=== PATIENT | male | born 1945 | race Caucasian/White ===

== ENCOUNTER 2016-10-01 09:50 | Observation (INO) ==
--- NOTE | 2016-10-01 10:20 | Emergency Department Note ---
Disposition Clinical Impression: Bradycardia, Hypotension, Diabetes Disposition: Admitted As Inpatient Condition: Fair Weakness HPI - General Chief complaint: ED General Medical Stated complaint: bp low Time Seen by Provider: 10/01/16 09:52 Source: patient Mode of arrival: ambulatory Limitations: no limitations Nursing Notes Reviewed: Yes Vital Signs Reviewed: Yes - History of Present Illness HPI Narrative: Patient was at the doctor's office yesterday was noted to have hypertension as a result of modified his medications is unclear the patient has either stop some of his thumb he does have a med reconciliation paper with him but he says he only takes with his doctor has he said he has a bottle at home so he takes his medications as a result appears the patient may be overmedicated causing some hypotension and bradycardia labs are being that this time to make sure there is no other underlying etiology Pt Subjective Complaint: generalized weakness/fatigue Onset (ago): 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 Duration: constant Location: generalized Migration: none Pain Severity: none Improves with: none Worsens with: none Context: new medication Associated symptoms: Denies: chest pain, confusion, dark stools, diaphoresis, dysuria, easy bruising, fever/chills, headaches, loss of appetite, nausea/ vomiting, myalgias, rash, shortness of breath, syncope - Related Data Home Medications Medication Instructions Recorded Confirmed Levothyroxine [Synthroid] 50 mcg PO 0630 06/20/16 10/01/16 Pravastatin Sodium [Pravachol] 40 mg PO HS 06/20/16 10/01/16 Primidone [Mysoline] 50 mg PO HS 06/20/16 10/01/16 Amlodipine Besylate 10 mg PO DAILY 06/21/16 10/01/16 Doxazosin [Cardura] 4 mg PO HS 06/21/16 10/01/16 Finasteride [Proscar] 5 mg PO DAILY 06/21/16 10/01/16 Glimepiride [Amaryl] 4 mg PO DAILY 06/21/16 10/01/16 Hydralazine HCl 100 mg PO TID 06/21/16 10/01/16 Isosorbide MONOnitrate [Isosorbide 120 mg PO DAILY 06/21/16 10/01/16 Mononitrate ER] Labetalol HCl 300 mg PO BID 06/21/16 10/01/16 Oxybutynin [Ditropan] 5 mg PO DAILY 06/21/16 10/01/16 Spironolactone [Aldactone] 25 mg PO DAILY 06/21/16 10/01/16 CloNIDine HCl [Clonidine HCl] 0.3 mg PO TID 09/24/16 10/01/16 Insulin Glargine [Lantus] 10 units SQ HS PRN 10/01/16 10/01/16 Allergies Allergy/AdvReac Type Severity Reaction Status Date / Time No Known Allergies Allergy Unverified 07/23/15 10:51 All systems ED: reviewed and negative except as stated. Constitutional: Reports: weakness. Denies: fever, chills Eyes: Denies: vision change ENT ED: Denies: ear pain, throat pain Cardiovascular: Denies: chest pain, palpitations Respiratory: Reports: dyspnea Gastrointestinal: Denies: abdominal pain Genitourinary: Denies: urgency, dysuria Musculoskeletal: Denies: back pain Integumentary: Denies: rash Neurological: Reports: weakness Psychiatric: Denies: anxiety Endocrine: Reports: fatigue Hematological/Lymphatic: Denies: easy bleeding Allergic/Immunologic: Denies: facial swelling Past Medical History - Past Medical History Attestation: Yes The following information was validated with the patient. Source: patient, old records reviewed, nursing notes reviewed Medical history: Reports: CVA, diabetes, GERD, hyperlipidemia, hypertension, thyroid disease Surgical history: Reports: orthopedic, other Psychiatric history: Reports: no psych history - Social History Smoking Status: Current every day smoker Smokeless Tobacco Status: No Alcohol use: Reports: none Drug use: Reports: none Physical Exam - General Limitations: no limitations General appearance: alert, in no apparent distress, lethargic - Head Head exam: atraumatic, normocephalic, normal inspection - Eye Eye exam: Present: normal appearance, PERRL, EOMI - ENT ENT exam: normal exam, normal oropharynx, mucous membranes moist, TM's normal bilaterally, normal external ear exam - Neck Neck exam: Present: normal inspection, full ROM, trachea midline - Chest Chest inspection: Present: normal inspection, symmetric chest wall rise - Respiratory Respiratory exam: Present: normal lung sounds bilaterally - Cardiovascular Cardiovascular exam: Present: bradycardia, normal heart sounds - Abdominal Exam Abdominal exam: Present: soft, Non-Tender, normal bowel sounds - Extremities Exam Extremities exam: Present: normal inspection, full ROM, normal capillary refill , other (global weakness). Absent: tenderness, pedal edema - Neurological Exam Neurological exam: Present: alert, oriented X3, CN II-XII intact - Psychiatric Psychiatric exam: Present: normal affect, normal mood - Skin Skin exam: Present: warm, dry, intact, normal color Course Course Narrative: Patient was seen and examined laboratory data was obtained as well as x-ray EKG was obtained and reviewed with the results with the patient we have recommended that he be admitted for observation as result of the medication overdose with these being a longer acting blood pressure arrhythmia pills as a result patient is agreeable he will be admitted observation services of Dr. Gee Vital Signs Temperature 97.9 F 10/01/16 09:52 Pulse Rate 56 10/01/16 09:52 Respiratory Rate 16 10/01/16 09:52 Blood Pressure 111/53 10/01/16 09:52 O2 Sat by Pulse Oximetry 95 10/01/16 09:52 Temperature 97.8 F 10/01/16 12:30 Pulse Rate 68 10/01/16 13:00 Respiratory Rate 18 10/01/16 13:00 Blood Pressure 140/70 10/01/16 13:00 O2 Sat by Pulse Oximetry 96 10/01/16 13:00 Oxygen Delivery Oxygen Delivery Room Air Weakness - MDM Narrative Medical decision making narrative: Patient appears to be the results of medication overdose dose was changed from 200 mg once a day to 300 mg twice a day old doctor's office in reviewing his medication list there appears to be multiple medications on the list he tells though [employer]. It Is Really Unclear What Medications He Is Taking and How Frequently He Is Taking Them As a Result This Appears to Be the Issue for These Medications - Medical Records Medical records reviewed: Yes I reviewed the patient's medical records. - Lab Data Lab results reviewed: Yes I reviewed the patient's lab results. Result diagrams: 10/01/16 10:15 10/01/16 10:15 Lab Results 10/01/16 10/01/16 10/01/16 Range/Units 10:15 10:15 10:15 WBC 11.0 (4.3-11.1) K/mcL RBC 3.99 L (4.19-5.50) M/mcL Hgb 11.0 L (12.9-16.9) g/dL Hct 34.5 L (37.5-50.1) % MCV 86.5 (83.0-100.0) fL MCH 27.6 L (28.0-33.3) pg MCHC 31.9 (31.6-35.5) g/dL RDW 13.7 (11.5-14.5) % Plt Count 245 (140-400) K/mcL MPV 9.3 L (9.4-12.4) fL Immature Gran % 0.5 (0-4) % Seg Neutrophils % 83.5 % Lymphocytes % 9.5 % Monocytes % 4.8 % Eosinophils % 1.0 % Basophils % 0.7 % Neutrophils # 9.2 H (1.6-8.9) K/mcL Lymphocytes # 1.1 (0.6-4.6) K/mcL Monocytes # 0.5 (0.0-1.3) K/mcL Eosinophils # 0.1 (0.0-0.6) K/mcL Basophils # 0.1 (0.0-0.2) K/mcL PT (9.4-12.1) Seconds INR APTT 28.8 (26.0-36.0) Seconds Sodium 139 (136-145) mEq/L Potassium 4.0 (3.5-4.5) mEq/L Chloride 109 (98-109) mEq/L Carbon Dioxide 22 (19-29) mEq/L BUN 23 (8-26) mg/dL Creatinine 1.43 H (0.72-1.25) mg/dL Est GFR ( Amer) 59 L (> 60) Est GFR (Non-Af Amer) 49 L (> 60) BUN/Creatinine Ratio 16 (6-26) Glucose 158 H (70-99) mg/dL Calculated Osmolality 295 (280-300) Calcium 7.9 L (8.6-10.8) mg/dL Troponin I (0-0.03) ng/mL B-Natriuretic Peptide (0-100) pg/mL TSH (0.350-4.840) mcIU/mL 10/01/16 10/01/16 10/01/16 Range/Units 10:15 10:15 10:15 WBC (4.3-11.1) K/mcL RBC (4.19-5.50) M/mcL Hgb (12.9-16.9) g/dL Hct (37.5-50.1) % MCV (83.0-100.0) fL MCH (28.0-33.3) pg MCHC (31.6-35.5) g/dL RDW (11.5-14.5) % Plt Count (140-400) K/mcL MPV (9.4-12.4) fL Immature Gran % (0-4) % Seg Neutrophils % % Lymphocytes % % Monocytes % % Eosinophils % % Basophils % % Neutrophils # (1.6-8.9) K/mcL Lymphocytes # (0.6-4.6) K/mcL Monocytes # (0.0-1.3) K/mcL Eosinophils # (0.0-0.6) K/mcL Basophils # (0.0-0.2) K/mcL PT 13.2 H (9.4-12.1) Seconds INR 1.2 APTT (26.0-36.0) Seconds Sodium (136-145) mEq/L Potassium (3.5-4.5) mEq/L Chloride (98-109) mEq/L Carbon Dioxide (19-29) mEq/L BUN (8-26) mg/dL Creatinine (0.72-1.25) mg/dL Est GFR ( Amer) (> 60) Est GFR (Non-Af Amer) (> 60) BUN/Creatinine Ratio (6-26) Glucose (70-99) mg/dL Calculated Osmolality (280-300) Calcium (8.6-10.8) mg/dL Troponin I 0.01 (0-0.03) ng/mL B-Natriuretic Peptide 218 H (0-100) pg/mL TSH (0.350-4.840) mcIU/mL 10/01/16 Range/Units 10:15 WBC (4.3-11.1) K/mcL RBC (4.19-5.50) M/mcL Hgb (12.9-16.9) g/dL Hct (37.5-50.1) % MCV (83.0-100.0) fL MCH (28.0-33.3) pg MCHC (31.6-35.5) g/dL RDW (11.5-14.5) % Plt Count (140-400) K/mcL MPV (9.4-12.4) fL Immature Gran % (0-4) % Seg Neutrophils % % Lymphocytes % % Monocytes % % Eosinophils % % Basophils % % Neutrophils # (1.6-8.9) K/mcL Lymphocytes # (0.6-4.6) K/mcL Monocytes # (0.0-1.3) K/mcL Eosinophils # (0.0-0.6) K/mcL Basophils # (0.0-0.2) K/mcL PT (9.4-12.1) Seconds INR APTT (26.0-36.0) Seconds Sodium (136-145) mEq/L Potassium (3.5-4.5) mEq/L Chloride (98-109) mEq/L Carbon Dioxide (19-29) mEq/L BUN (8-26) mg/dL Creatinine (0.72-1.25) mg/dL Est GFR ( Amer) (> 60) Est GFR (Non-Af Amer) (> 60) BUN/Creatinine Ratio (6-26) Glucose (70-99) mg/dL Calculated Osmolality (280-300) Calcium (8.6-10.8) mg/dL Troponin I (0-0.03) ng/mL B-Natriuretic Peptide (0-100) pg/mL TSH 5.282 H (0.350-4.840) mcIU/mL - Radiology Data Radiology results reviewed: Yes I reviewed the patient's radiology results. CXR shows cardiomegaly but no effusion or pneumothorax or fractured ribs is interpreted myself 1 view portable chest x-ray - EKG Data EKG attestation: Yes I reviewed and interpreted this EKG. EKG results narrative: Rhythm sinus kaiden with a prolonged QT Heart Rate 54 HI 160 QRS 109 QT 492 Axes 38 Critical Care Time Critical Care Time: No
[2016-10-01 10:30] LABS: Basophils # 0.1 K/mcL (0.0-0.2); Basophils % 0.7 %; Eosinophils # 0.1 K/mcL (0.0-0.6); Hematocrit 34.5 % (37.5-50.1); Immature Granulocytes % 0.5 % (0-4); Lymphocytes # 1.1 K/mcL (0.6-4.6); Lymphocytes % 9.5 %; Mean Corpuscular HGB Conc 31.9 g/dL (31.6-35.5); Mean Corpuscular Hemoglobin 27.6 pg (28.0-33.3); Mean Corpuscular Volume 86.5 fL (83.0-100.0); Mean Platelet Volume 9.3 fL (9.4-12.4); Monocytes # 0.5 K/mcL (0.0-1.3); Monocytes % 4.8 %; Neutrophils # 9.2 K/mcL (1.6-8.9); Platelet Count 245 K/mcL (140-400); Red Blood Count 3.99 M/mcL (4.19-5.50); Red Cell Distribution Width 13.7 % (11.5-14.5); Segmented Neutrophils % 83.5 %
[2016-10-01 10:36] LABS: INR 1.2; Prothrombin Time 13.2 Seconds (9.4-12.1)
[2016-10-01 10:46] LABS: Calcium 7.9 mg/dL (8.6-10.8)
--- NOTE | 2016-10-01 12:01 | Electrocardiograph Report ---
[facility] Test Date: 2016-10-01 Pat Name: Cresencio Morris Department: 9201 Room: Gender: M Mental Tester: [id number] : 1945 Requested By: Lizette Cervantes Order Number: [id number] Reading MD: Carlos Lucas MD Measurements Intervals [place] Rate: 54 P: 23 DE: 160 QRS: 38 QRSD: 109 T: 52 QT: 492 QTc: 477 Interpretive Statements SINUS BRADYCARDIA PROLONGED QT INTERVAL Electronically Signed On 10-01-16 12:00:12 EST by Carlos Lucas MD
[2016-10-01] MEDS ORDERED: Naloxone 0.4 MG/ML INJ IVP PRN (13:49)
[2016-10-01] MEDS ORDERED: Insulin DETEMIR 100 UNIT/ML X5UNITS SQ SCH (21:00)
[2016-10-02] MEDS: Isosorbide MONOnitrate (24 HR) 60 MG TAB.ER.24H PO SCH ×2 (00:32→10:24)
[2016-10-02 06:05] LABS: Basophils # 0.1 K/mcL (0.0-0.2); Basophils % 0.9 %; Eosinophils # 0.2 K/mcL (0.0-0.6); Eosinophils % 1.8 %; Hematocrit 33.7 % (37.5-50.1); Hemoglobin 10.7 g/dL (12.9-16.9); Immature Granulocytes % 0.2 % (0-4); Lymphocytes # 1.8 K/mcL (0.6-4.6); Lymphocytes % 19.6 %; Mean Corpuscular HGB Conc 31.8 g/dL (31.6-35.5); Mean Corpuscular Hemoglobin 27.2 pg (28.0-33.3); Mean Corpuscular Volume 85.5 fL (83.0-100.0); Mean Platelet Volume 9.4 fL (9.4-12.4); Monocytes # 0.6 K/mcL (0.0-1.3); Monocytes % 6.7 %; Neutrophils # 6.6 K/mcL (1.6-8.9); Platelet Count 255 K/mcL (140-400); Red Blood Count 3.94 M/mcL (4.19-5.50); Red Cell Distribution Width 13.7 % (11.5-14.5); Segmented Neutrophils % 70.8 %
[2016-10-02 06:21] LABS: INR 1.2; Prothrombin Time 12.9 Seconds (9.4-12.1)
[2016-10-02 06:24] LABS: Activated Partial Thrombo Time 29.5 Seconds (26.0-36.0)
[2016-10-02 06:30] LABS: BUN/Creatinine Ratio 18 (6-26); Blood Urea Nitrogen 21 mg/dL (8-26); Calcium 8.1 mg/dL (8.6-10.8); Carbon Dioxide 21 mEq/L (19-29); Chloride 111 mEq/L (98-109); Glucose 66 mg/dL (70-99); Osmolality,Calculated 295 (280-300); Potassium 3.5 mEq/L (3.5-4.5); Sodium 142 mEq/L (136-145); eGFR For African Americans > 60 (> 60); eGFR For Non-African Americans > 60 (> 60)
[2016-10-02 15:15] VITALS: BP 181/67
--- NOTE | 2016-10-02 17:36 | Internal Med History&Physical ---
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 (4) Hypotension Current visit: Yes Status: Acute His blood pressure was initially low about 70/40 in the ER we held all the blood pressure medicine and it started coming up so blood pressure medicines were restarted except labetalol Qualifiers: Hypotension type: other hypotension type Qualified Code(s): I95.89 - Other hypotension Internal Medicine - H&P: HPI Chief complaint: Sleepy Admitted From: Home Plans for Post Hospital Care: Home History of present illness: Mr. Morris is a 71 [facility] with a blood pressure about 170/40. He apparently saw Dr. Alexander who increased his labetalol the day before. This is the first dose he took 300 mg and he developed the symptoms. He denied having chest pain or shortness breath. He did not notice it was right after eating breakfast. He recently had a low sugar after eating and pharyngeal bodies but only happened once. He reports having left-sided weakness compared to the right since she had a stroke in the past. He has left knee pain about 8 out 10 whenever he walks and recently got a shot by Dr. Burch and that knee. He said it was helpful. He also notes ringing in his ears whenever his blood pressure is elevated. He denies any chest pain shortness of breath, nausea vomiting diarrhea, headache dizziness, rest of the review of systems negative Past Med Surg Social Fam HX - Past Medical History Source: patient Medical history: arthritis, coronary artery disease (Reports about 20% blockage on a previous catheterization), CVA (Left hemiplegia, left hand pain), diabetes , GERD, hyperlipidemia, hypertension, thyroid disease (Up with thyroidism) Psychiatric history: no psych history - Past Surgical History Surgical History: appendectomy, cataract (Bilaterally), orthopedic, other ( Right hip), other (Horseshoe kidney surgery) - Social History Smoking Status: Current every day smoker (A pack a day the fifth [id number] history recommend lung cancer screening he can talk with Dr. Alexander about it, Smoking increases your risk of heart attacks, strokes, lung cancer, emphysema, chronic obstructive pulmonary disease, bronchitis, peripheral vascular disease , I recommend he gives it up. If he wants help in the future, he can ask his provider for help.) Smokeless Tobacco Status: No Alcohol use: none Drug use: other (Pepsi about 3-4 cans per day, Because caffeine is a stimulant and makes one feel a boost of energy by tapping into ones reserve energy, it can lead to anxiety and panic attacks. When used routiely, it interferes with deep sleep, so the reserve energy isn't being replaced effectively which leads to tiredness, depression, higher risk of infection. I recommend patients gives up daily use.) Occupational status: retired Current living situation: Home - Independent Activity Level: Independent ambulation - Family History Father Living Status: Hx Family Cancer: Yes (Skin) Mother Living Status: (During surgery) Hx Family Endocrine Disorder: Yes (Diabetes) Internal Medicine - H&P: Meds Levothyroxine [Synthroid] 50 mcg PO 0630 06/20/16 [History] Pravastatin Sodium [Pravachol] 40 mg PO HS 06/20/16 [History] Primidone [Mysoline] 50 mg PO HS 06/20/16 [History] Amlodipine Besylate 10 mg PO DAILY 06/21/16 [History] Doxazosin [Cardura] 4 mg PO HS 06/21/16 [History] Finasteride [Proscar] 5 mg PO DAILY 06/21/16 [History] Glimepiride [Amaryl] 4 mg PO DAILY 06/21/16 [History] Hydralazine HCl 100 mg PO TID 06/21/16 [History] Isosorbide MONOnitrate [Isosorbide Mononitrate ER] 120 mg PO DAILY 06/21/16 [ History] Labetalol HCl 300 mg PO BID 06/21/16 [History] Oxybutynin [Ditropan] 5 mg PO DAILY 06/21/16 [History] Spironolactone [Aldactone] 25 mg PO DAILY 06/21/16 [History] CloNIDine HCl [Clonidine HCl] 0.3 mg PO TID 09/24/16 [History] Insulin Glargine [Lantus] 10 units SQ HS PRN 10/01/16 [History] Allergies No Known Allergies Allergy (Unverified 07/23/15 10:51) All Systems PM: A 10-system review of systems was performed and is negative for pertinent findings except as documented above in the HPI. - Constitutional Vitals: Temp Pulse Resp BP Pulse Ox 99.1 F 66 18 181/67 96 10/02/16 15:14 10/02/16 15:14 10/02/16 15:14 10/02/16 15:14 10/02/16 15:14 - Head Head exam: Present: atraumatic, normocephalic - Eye Eye exam: Present: PERRL, conjuntiva pink, sclera anicteric Pupils: Present: PERRL - Neck Neck exam general surgery: Present: supple, trachea midline. Absent: lymphadenopathy - Respiratory Respiratory exam: Present: CTAB. Absent: accessory muscle use, rales, rhonchi, wheezes - Cardiovascular Cardiovascular exam: Present: RRR, +S1, +S2. Absent: diastolic murmur, gallop, rubs, systolic murmur - GI/Abdominal GI/Abdominal exam: Present: normal bowel sounds, soft, no peritoneal signs. Absent: distended, tenderness - Extremities Exam Extremities exam: Present: warm. Absent: calf tenderness, cyanotic, pedal edema - Neurological Exam Neurological exam: Present: CN II-XII intact, oriented X3. Absent: facial droop , speech deficit Additional comments: Left sided weakness slightly compared to the right - Skin Skin exam: Present: dry, intact Internal Med - H&P Results - Labs CBC & Chem 7: 10/02/16 05:18 10/02/16 05:18 Labs: Short CBC 10/02/16 Range/Units 05:18 WBC 9.4 (4.3-11.1) K/mcL Hgb 10.7 L (12.9-16.9) g/dL Hct 33.7 L (37.5-50.1) % Plt Count 255 (140-400) K/mcL Neutrophils # 6.6 (1.6-8.9) K/mcL BMP 10/02/16 05:18 Sodium 142 Potassium 3.5 Chloride 111 H Carbon Dioxide 21 BUN 21 Creatinine 1.14 Glucose 66 L Calcium 8.1 L Cardiac Enzymes 10/01/16 Range/Units 22:20 Troponin I 0.02 (0-0.03) ng/mL
--- NOTE | 2016-10-02 18:03 | Discharge Summary ---
Date of Encounter: 10/02/16 Time of Encounter: 18:00 - Discharge Diagnosis (1) Hypotension Priority: Primary Status: Acute Qualifiers: Hypotension type: other hypotension type Qualified Code(s): I95.89 - Other hypotension (2) Bradycardia Priority: Primary Status: Acute (3) Hypertension Priority: Secondary Status: Chronic Qualifiers: Hypertension type: essential hypertension Qualified Code(s): I10 - Essential (primary) hypertension (4) DM2 (diabetes mellitus, type 2) Priority: Secondary Status: Chronic Qualifiers: Diabetes mellitus complication status: without complication Diabetes mellitus prison insulin use: with salvage determiner use Qualified Code(s): E11.9 - Type 2 diabetes mellitus without complications; Z79.4 - salvage determiner (current) use of insulin - Discharge Medications Home Medications: Levothyroxine [Synthroid] 50 mcg PO 0630 06/20/16 [History] Pravastatin Sodium [Pravachol] 40 mg PO HS 06/20/16 [History] Primidone [Mysoline] 50 mg PO HS 06/20/16 [History] Amlodipine Besylate 10 mg PO DAILY 06/21/16 [History] Doxazosin [Cardura] 4 mg PO HS 06/21/16 [History] Finasteride [Proscar] 5 mg PO DAILY 06/21/16 [History] Glimepiride [Amaryl] 4 mg PO DAILY 06/21/16 [History] Hydralazine HCl 100 mg PO TID 06/21/16 [History] Isosorbide MONOnitrate [Isosorbide Mononitrate ER] 120 mg PO DAILY 06/21/16 [ History] Oxybutynin [Ditropan] 5 mg PO DAILY 06/21/16 [History] Spironolactone [Aldactone] 25 mg PO DAILY 06/21/16 [History] CloNIDine HCl [Clonidine HCl] 0.3 mg PO TID 09/24/16 [History] Insulin Glargine [Lantus] 10 units SQ HS PRN 10/01/16 [History] Labetalol [Trandate] 200 mg PO BID tablet 10/02/16 [Rx] Allergies/Adverse Reactions: Allergies No Known Allergies Allergy (Unverified 07/23/15 10:51) Date of admission: 10/01/16 13:09 Primary care physician: Nilay Alexander MD Consults: 10/01/16 15:04 Consult to Glove Printer [CONS] Routine Reason for SW Consult: discharge planning Discharging clinician: João Alatorre Anticipated date of discharge: 10/02/16 - Patient Status Disposition: Home, Self-Care Condition: Fair Functional capacity at discharge: independent ambulation Overall status at discharge: patient is back to baseline - Discharge Instructions Follow Up With: Nilay Alexander MD [Primary Care Provider] - 1 week - Diet and Activity Activity: resume usual activities as tolerated Diet: diabetic diet, low fat, low cholesterol Interval History: 8-year-old male presented to emergency room with sleepiness she is found to have hypotension and bradycardia medications emergency room. It happened after he took his first dose of labetalol 300 mg. He is taken off his blood pressure medicines until his blood pressure came up and then they were reinstituted except for the labetalol. Patient has a 200 mg labetalol at home and he will start that back up. Recent will discuss with Dr. Alexander the next approach since he did not tolerate the labetalol 300 mg tablet Hospital course: Mr. Morris is a 71 year old male Time spent discussing smoking cessation with patient: 3 to 10 minutes - Time Spent with Patient Total time spent providing and/or coordinating discharge services: Greater than 30 minutes - Constitutional Vitals: Temp Pulse Resp BP Pulse Ox 99.1 F 66 18 181/67 96 10/02/16 15:14 10/02/16 15:14 10/02/16 15:14 10/02/16 15:14 10/02/16 15:14 Exam: General: Alert and oriented, no acute distress Lungs: Clear to auscultation bilaterally without wheezing or crackles Heart: Regular rate and rythms without murmer or rubs Abdomen: Soft, nontender, Extremities: no edema, redness
[2016-10-02] MEDS ORDERED: Primidone 50 MG TABLET PO SCH (21:00)
[2016-10-03] MEDS ORDERED: Finasteride 5 MG TABLET PO SCH (09:00)
[2016-10-03] MEDS ORDERED: Spironolactone 25 MG TABLET PO SCH (09:00)
== END 2016-10-02 20:17 | disposition home or self-care (01) ==
LOC: INPPIK 09:50 → EMEROOPIK 09:50 → INPPIK 13:50
PROVIDERS: ADMIT Internal Medicine; ATTEND Internal Medicine

== ENCOUNTER 2017-02-28 09:41 | Observation (INO) ==
[2017-02-28] MEDS ORDERED: 0.9 % Sodium Chloride 500 ML IVC ONE (09:43)
--- NOTE | 2017-02-28 09:55 | Emergency Department Note ---
Disposition Clinical Impression: Metabolic acidosis Hypotension Qualifiers: Hypotension type: hypotension due to drug Qualified Code(s): I95.2 - Hypotension due to drugs Disposition: Admitted As Inpatient Condition: Good Referrals: Nilay Alexander MD [Primary Care Provider] - Forms: Work/School Release, ED Satisfaction Letter Time of Disposition: 11:56 General Adult HPI - General Chief complaint: ED General Medical Stated complaint: sleepy, tired Source: patient, EMS Mode of arrival: EMS Limitations: no limitations Vital Signs Reviewed: Yes - History of Present Illness HPI Narrative: Patient presents to the emergency department via EMS for evaluation of "sleepiness." He states that he went to bed last night as per his norm and slept well. He states that he has been up this morning and was in his recliner. He states that he checked his blood pressure at home and took some of his blood pressure medications secondary to the fact that he noted his blood pressure to be elevated. He states that a family member brought him breakfast this morning and found him in his recliner difficult to arouse. Upon arrival he states that he is fatigued but denies symptoms otherwise. He is alert and oriented 3. He denies any pain. He denies visual changes confusion speech changes motor or sensory deficits. He does not currently have a list of his medications, he states that he has not had any recent medication changes though he does not take his blood pressure medications on a regular basis. He denies overdose suicidal or homicidal ideations. Pain Scale: 0 - Related Data Home Medications Medication Instructions Recorded Confirmed Levothyroxine [Synthroid] 50 mcg PO 0630 06/20/16 02/28/17 Doxazosin [Cardura] 8 mg PO HS 06/21/16 02/28/17 Finasteride [Proscar] 5 mg PO DAILY 06/21/16 02/28/17 Glimepiride [Amaryl] 4 mg PO DAILY 06/21/16 02/28/17 Atenolol/Chlorthalidone [Tenoretic 1 each PO DAILY 02/28/17 02/28/17 50 Tablet] Allergies Allergy/AdvReac Type Severity Reaction Status Date / Time No Known Allergies Allergy Unverified 07/23/15 10:51 Constitutional: Reports: weakness. Denies: fever, chills Eyes: Denies: eye pain, eye discharge, vision change ENT ED: Denies: ear pain, throat pain, dysphagia Cardiovascular: Denies: chest pain, palpitations, dyspnea on exertion, orthopnea , edema Respiratory: Denies: cough, dyspnea, wheezes Gastrointestinal: Denies: abdominal pain, nausea, vomiting, diarrhea Genitourinary: Denies: urgency, dysuria, frequency, hematuria Musculoskeletal: Denies: back pain, neck pain, joint swelling, arthralgia Integumentary: Denies: rash, abrasion Neurological: Denies: headache, numbness, paresthesias, confusion, vertigo Psychiatric: Denies: depression, suicidal thoughts, homicidal thoughts Endocrine: Reports: fatigue Hematological/Lymphatic: Denies: easy bleeding, easy bruising, lymphadenopathy Allergic/Immunologic: Denies: urticaria Past Medical History - Past Medical History Medical history: Reports: arthritis, coronary artery disease, CVA, diabetes, GERD, hyperlipidemia, hypertension, thyroid disease Surgical history: Reports: appendectomy, cataract (Bilaterally), orthopedic, other (Right hip), other (Horseshoe kidney surgery) Psychiatric history: Reports: no psych history - Social History Smoking Status: Current every day smoker Smokeless Tobacco Status: No Alcohol use: Reports: none Drug use: Reports: other Physical Exam - General Limitations: no limitations General appearance: alert (Patient resting comfortably interactive alert and appropriately cooperative and pleasant), in no apparent distress - Head Head exam: atraumatic, normocephalic - Eye Eye exam: Present: normal appearance, PERRL, EOMI. Absent: scleral icterus, conjunctival injection, nystagmus - ENT ENT exam: normal exam, normal oropharynx, mucous membranes moist, TM's normal bilaterally - Neck Neck exam: Present: normal inspection, full ROM. Absent: meningismus, lymphadenopathy - Respiratory Respiratory exam: Present: normal lung sounds bilaterally - Cardiovascular Cardiovascular exam: Present: regular rate, bradycardia, normal heart sounds - Abdominal Exam Abdominal exam: Present: soft, Non-Tender, normal bowel sounds. Absent: mass, bruit, pulsatile mass, hernia - Extremities Exam Extremities exam: Present: normal inspection, full ROM, normal capillary refill. Absent: tenderness, pedal edema, joint swelling, calf tenderness - Back Exam Back exam: Present: normal inspection, full ROM. Absent: tenderness - Neurological Exam Neurological exam: Present: alert, oriented X3, CN II-XII intact. Absent: motor sensory deficit - Psychiatric Psychiatric exam: Present: normal affect, normal mood - Skin Skin exam: Present: warm, dry, intact, normal color. Absent: rash Course Course Narrative: Time 1154: Current heart rate is 55, blood pressure 124/63. Patient is resting comfortably and subjectively feels much improved. Upon review of his prior visits, he was admitted earlier this year for a similar presentation at which time it was assumed that he had a reaction to his blood pressure medications. The patient is quite unclear as to what medications he takes on a daily basis and at what time. He has multiple medications for blood pressure which certainly could have caused his hypotension and bradycardia which has responded well to IV fluids. Patient does have a metabolic acidosis but his pH is unremarkable, salicylates are negative, and his lactate is not elevated. Patient will be admitted to the hospitalist service for ongoing evaluation and treatment. Vital Signs Temperature 97.5 F L 02/28/17 09:43 Pulse Rate 51 02/28/17 09:43 Respiratory Rate 18 02/28/17 09:43 Blood Pressure 91/41 02/28/17 09:43 O2 Sat by Pulse Oximetry 95 02/28/17 09:43 Temperature 97.5 F L 02/28/17 09:43 Pulse Rate 57 02/28/17 11:35 Respiratory Rate 16 02/28/17 11:35 Blood Pressure 98/50 02/28/17 11:35 O2 Sat by Pulse Oximetry 98 02/28/17 11:35 Oxygen Delivery Oxygen Delivery Nasal Cannula Medical Decision Making - Lab Data Lab results reviewed: Yes I reviewed the patient's lab results. Result diagrams: 02/28/17 10:10 02/28/17 10:10 Lab Results 02/28/17 02/28/17 02/28/17 Range/Units 10:00 10:10 10:10 WBC (4.3-11.1) K/mcL RBC (4.19-5.50) M/mcL Hgb (12.9-16.9) g/dL Hct (37.5-50.1) % MCV (83.0-100.0) fL MCH (28.0-33.3) pg MCHC (31.6-35.5) g/dL RDW (11.5-14.5) % Plt Count (140-400) K/mcL MPV (9.4-12.4) fL Immature Gran % (0-4) % Seg Neutrophils % % Lymphocytes % % Monocytes % % Eosinophils % % Basophils % % Neutrophils # (1.6-8.9) K/mcL Lymphocytes # (0.6-4.6) K/mcL Monocytes # (0.0-1.3) K/mcL Eosinophils # (0.0-0.6) K/mcL Basophils # (0.0-0.2) K/mcL PT 12.6 H (9.4-12.1) Seconds INR 1.2 APTT 29.1 (26.0-36.0) Seconds VBG pH (7.32-7.42) pH Units VBG pCO2 (41-51) mmHg VBG pO2 (25-40) mmHg VBG HCO3 (21-27) mEq/L VBG Lactic Acid (0.5-2.2) mmol/L Sodium (136-145) mEq/L Potassium (3.5-4.5) mEq/L Chloride (98-109) mEq/L Carbon Dioxide (19-29) mEq/L BUN (8-26) mg/dL Creatinine (0.72-1.25) mg/dL Est GFR ( Amer) (> 60) Est GFR (Non-Af Amer) (> 60) BUN/Creatinine Ratio (6-26) Glucose (70-99) mg/dL Calculated Osmolality (280-300) Calcium (8.6-10.8) mg/dL Total Bilirubin 0.7 (0.2-1.2) mg/dL Direct Bilirubin 0.3 (0.0-0.5) mg/dL Indirect Bilirubin 0.4 (0.0-1.2) mg/dL AST 10 (5-34) Units/L ALT 9 (0-55) Units/L Alkaline Phosphatase 74 (38-126) Units/L Creatine Kinase (30-200) Units/L Troponin I (0-0.03) ng/mL Serum Total Protein 6.4 (6.0-8.3) g/dL Albumin 3.1 L (3.5-5.0) g/dL Globulin 3.3 (2.4-3.5) g/dL Albumin/Globulin Ratio 0.9 L (1.1-2.2) Lipase 128 H (8-78) Units/L Salicylates < 5.0 L (15-30) mg/dL 02/28/17 02/28/17 02/28/17 Range/Units 10:10 10:10 10:10 WBC 13.0 H (4.3-11.1) K/mcL RBC 4.42 (4.19-5.50) M/mcL Hgb 12.5 L (12.9-16.9) g/dL Hct 38.0 (37.5-50.1) % MCV 86.0 (83.0-100.0) fL MCH 28.3 (28.0-33.3) pg MCHC 32.9 (31.6-35.5) g/dL RDW 14.0 (11.5-14.5) % Plt Count 209 (140-400) K/mcL MPV 9.9 (9.4-12.4) fL Immature Gran % 0.9 (0-4) % Seg Neutrophils % 84.2 % Lymphocytes % 8.6 % Monocytes % 4.5 % Eosinophils % 1.0 % Basophils % 0.8 % Neutrophils # 11.0 H (1.6-8.9) K/mcL Lymphocytes # 1.1 (0.6-4.6) K/mcL Monocytes # 0.6 (0.0-1.3) K/mcL Eosinophils # 0.1 (0.0-0.6) K/mcL Basophils # 0.1 (0.0-0.2) K/mcL PT (9.4-12.1) Seconds INR APTT (26.0-36.0) Seconds VBG pH (7.32-7.42) pH Units VBG pCO2 (41-51) mmHg VBG pO2 (25-40) mmHg VBG HCO3 (21-27) mEq/L VBG Lactic Acid (0.5-2.2) mmol/L Sodium 139 (136-145) mEq/L Potassium 4.7 H (3.5-4.5) mEq/L Chloride 111 H (98-109) mEq/L Carbon Dioxide 15 L (19-29) mEq/L BUN 19 (8-26) mg/dL Creatinine 1.68 H (0.72-1.25) mg/dL Est GFR ( Amer) 49 L (> 60) Est GFR (Non-Af Amer) 41 L (> 60) BUN/Creatinine Ratio 11 (6-26) Glucose 166 H (70-99) mg/dL Calculated Osmolality 294 (280-300) Calcium 8.4 L (8.6-10.8) mg/dL Total Bilirubin (0.2-1.2) mg/dL Direct Bilirubin (0.0-0.5) mg/dL Indirect Bilirubin (0.0-1.2) mg/dL AST (5-34) Units/L ALT (0-55) Units/L Alkaline Phosphatase (38-126) Units/L Creatine Kinase (30-200) Units/L Troponin I 0.01 (0-0.03) ng/mL Serum Total Protein (6.0-8.3) g/dL Albumin (3.5-5.0) g/dL Globulin (2.4-3.5) g/dL Albumin/Globulin Ratio (1.1-2.2) Lipase (8-78) Units/L Salicylates (15-30) mg/dL 02/28/17 02/28/17 Range/Units 10:10 11:25 WBC (4.3-11.1) K/mcL RBC (4.19-5.50) M/mcL Hgb (12.9-16.9) g/dL Hct (37.5-50.1) % MCV (83.0-100.0) fL MCH (28.0-33.3) pg MCHC (31.6-35.5) g/dL RDW (11.5-14.5) % Plt Count (140-400) K/mcL MPV (9.4-12.4) fL Immature Gran % (0-4) % Seg Neutrophils % % Lymphocytes % % Monocytes % % Eosinophils % % Basophils % % Neutrophils # (1.6-8.9) K/mcL Lymphocytes # (0.6-4.6) K/mcL Monocytes # (0.0-1.3) K/mcL Eosinophils # (0.0-0.6) K/mcL Basophils # (0.0-0.2) K/mcL PT (9.4-12.1) Seconds INR APTT (26.0-36.0) Seconds VBG pH 7.32 (7.32-7.42) pH Units VBG pCO2 44.5 (41-51) mmHg VBG pO2 37.0 (25-40) mmHg VBG HCO3 22.9 (21-27) mEq/L VBG Lactic Acid 1.0 (0.5-2.2) mmol/L Sodium (136-145) mEq/L Potassium (3.5-4.5) mEq/L Chloride (98-109) mEq/L Carbon Dioxide (19-29) mEq/L BUN (8-26) mg/dL Creatinine (0.72-1.25) mg/dL Est GFR ( Amer) (> 60) Est GFR (Non-Af Amer) (> 60) BUN/Creatinine Ratio (6-26) Glucose (70-99) mg/dL Calculated Osmolality (280-300) Calcium (8.6-10.8) mg/dL Total Bilirubin (0.2-1.2) mg/dL Direct Bilirubin (0.0-0.5) mg/dL Indirect Bilirubin (0.0-1.2) mg/dL AST (5-34) Units/L ALT (0-55) Units/L Alkaline Phosphatase (38-126) Units/L Creatine Kinase 48 (30-200) Units/L Troponin I (0-0.03) ng/mL Serum Total Protein (6.0-8.3) g/dL Albumin (3.5-5.0) g/dL Globulin (2.4-3.5) g/dL Albumin/Globulin Ratio (1.1-2.2) Lipase (8-78) Units/L Salicylates (15-30) mg/dL ITS Impressions Chest X-Ray 02/28/17 09:43 IMPRESSION: No acute abnormality. D/ / Ted Jaffe MD / Ted Jaffe MD Interpreting Provider: Ted Jaffe MD - Radiology Data Radiology results reviewed: Yes I reviewed the patient's radiology results. - EKG Data EKG #1 EKG attestation: Yes I reviewed and interpreted this EKG. EKG shows normal: sinus rhythm Rate: bradycardia (Sinus bradycardia with a rate of 49. Nonspecific changes without acute ST segment change.)
[2017-02-28 10:25] LABS: Basophils # 0.1 K/mcL (0.0-0.2); Basophils % 0.8 %; Eosinophils # 0.1 K/mcL (0.0-0.6); Hemoglobin 12.5 g/dL (12.9-16.9); Immature Granulocytes % 0.9 % (0-4); Lymphocytes # 1.1 K/mcL (0.6-4.6); Lymphocytes % 8.6 %; Mean Corpuscular HGB Conc 32.9 g/dL (31.6-35.5); Mean Corpuscular Hemoglobin 28.3 pg (28.0-33.3); Mean Platelet Volume 9.9 fL (9.4-12.4); Monocytes # 0.6 K/mcL (0.0-1.3); Monocytes % 4.5 %; Platelet Count 209 K/mcL (140-400); Red Blood Count 4.42 M/mcL (4.19-5.50); Segmented Neutrophils % 84.2 %
[2017-02-28 10:26] LABS: INR 1.2; Prothrombin Time 12.6 Seconds (9.4-12.1)
[2017-02-28 10:29] LABS: Activated Partial Thrombo Time 29.1 Seconds (26.0-36.0)
[2017-02-28 10:35] LABS: Calcium 8.4 mg/dL (8.6-10.8); Potassium 4.7 mEq/L (3.5-4.5)
[2017-02-28 10:38] LABS: Albumin 3.1 g/dL (3.5-5.0); Albumin/Globulin Ratio 0.9 (1.1-2.2); Bilirubin,Direct 0.3 mg/dL (0.0-0.5); Bilirubin,Indirect 0.4 mg/dL (0.0-1.2); Bilirubin,Total 0.7 mg/dL (0.2-1.2); Globulin 3.3 g/dL (2.4-3.5); Total Protein 6.4 g/dL (6.0-8.3)
[2017-02-28 11:44] LABS: VBG PCO2 44.5 mmHg (41-51); VBG PH 7.32 pH Units (7.32-7.42)
[2017-02-28 11:45] LABS: VBG HCO3 22.9 mEq/L (21-27)
[2017-02-28] MEDS ORDERED: 0.9 % Sodium Chloride 1,000 ML IVC SCH (12:00)
[2017-02-28 15:51] LABS: Bilirubin,Urine Negative (Negative); Blood,Urine Negative (Negative); Clarity,Urine Clear (Clear); Glucose,Urine (UA) Normal (Normal); Ketones,Urine Negative (Negative); Leukocyte Esterase,Urine Negative (Negative); Nitrite,Urine Negative (Negative); PH,Urine 5.5 pH Units (5.0-8.0); Protein,Urine 30 mg/dL (Neg-Trace); Specific Gravity,Urine 1.015 (1.010-1.025); Urobilinogen,Urine Normal (Normal)
[2017-02-28 16:04] LABS: Color,Urine Dark Yellow (Yellow)
[2017-02-28 16:07] LABS: Amphetamine Screen,Urine Negative ng/mL (Cutoff=1000); Bacteria,Urine Few per hpf (None-Few); Barbiturate Screen,Urine Positive ng/mL (Cutoff=200); Benzodiazepines Screen,Urine Negative ng/mL (Cutoff=200); Cannabinoid Screen,Urine Negative ng/mL (Cutoff = 50); Cocaine Screen,Urine Negative ng/mL (Cutoff= 300); Hyaline Casts,Urine Few per lpf (None-Few); Mucus,Urine Few (Few); Opiate Screen,Urine Negative ng/mL (Cutoff=300); Phencyclidine Screen,Urine Negative ng/mL (Cutoff=25); RBC,Urine 0-3 per hpf (0-3); Squamous Epithelial Cell,Urine Few per lpf (None-Few)
--- NOTE | 2017-02-28 16:43 | Internal Med History&Physical ---
Date of Encounter: 02/28/17 Time of Encounter: 16:00 Assessment and Plan (1) Neutrophilic leukocytosis Current visit: Yes Status: Acute Etiology not obvious. Will recheck labs in a.m. (2) Hypothyroid Current visit: No Status: Chronic We will check TSH in a.m. 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 Qualifiers: Hypotension type: hypotension due to drug Qualified Code(s): I95.2 - Hypotension due to drugs Internal Medicine - H&P: HPI Chief complaint: Low blood pressure and weakness Admitted From: Home Plans for Post Hospital Care: Home History of present illness: Mr. Morris is a 71 year old male who came to emergency room stating he had developed low blood pressure after taking his morning blood pressure medications. He felt weak and lethargic. His family reportedly observed him to be "sleepy". He was brought to emergency room and evaluated and admitted to [facility] floor for ongoing care needs. Cardiovascular history is significant for hypertension with significant fluctuation in his morning and evening blood pressures. He reports morning SBP readings are typically 180 or higher and DBP 120 or higher. The evening reading SBP is frequently 140 or lower and DBP approximately 70. He denies [place] heart failure DVT or pulmonary embolus. He claims he had a heart cath approximately 2009 which showed 40% stenosis in one vessel. He had an echocardiogram 07/23/2013 which showed LVEF 60-65% with moderate concentric LVH and mild diastolic dysfunction. There was no significant valvular abnormality seen. The interventricular septum thickness was 1.3 cm and the posterior wall thickness 1.4 cm. Past Med Surg Social Fam HX - Past Medical History Medical history: arthritis, coronary artery disease, CVA, diabetes, GERD, hyperlipidemia, hypertension, thyroid disease Psychiatric history: no psych history - Past Surgical History Surgical History: appendectomy, cataract, orthopedic, other, other - Social History Smoking Status: Current every day smoker Smokeless Tobacco Status: No Alcohol use: none Drug use: other - Family History Father Living Status: Hx Family Cancer: Yes (Skin) Mother Living Status: Hx Family Endocrine Disorder: Yes (Diabetes) Internal Medicine - H&P: Meds Levothyroxine [Synthroid] 50 mcg PO 0630 06/20/16 [History] Doxazosin [Cardura] 8 mg PO HS 06/21/16 [History] Finasteride [Proscar] 5 mg PO DAILY 06/21/16 [History] Glimepiride [Amaryl] 4 mg PO DAILY 06/21/16 [History] Atenolol/Chlorthalidone [Tenoretic 50 Tablet] 1 each PO DAILY 02/28/17 [History] Allergies No Known Allergies Allergy (Unverified 07/23/15 10:51) All Systems PM: A 10-system review of systems was performed and is negative for pertinent findings except as documented above in the HPI. Review of systems: Gen.: His weight has decreased from 99.79 kg at the September 2016 hospitalization to 89.993 kg today. Cardiovascular: As per history of present illness Respiratory: He has smoked since age 19 up to 1 pack per day. He has not had PFTs and does not wear home oxygen and has not been tested for sleep apnea GI: He had GERD in the past but denies symptoms now. Denies disorders of his liver gallbladder or exceeding pancreas : He has chronic kidney disease and has seen a [employer] boatswain mate in the past but his last visit was more than a year ago. He has BPH but denies other kidney or bladder disorders. Neurologic: He had a stroke approximately 2012 with left arm and hand weakness and tremor as residual. He denies seizures. Endocrine: He was diagnosed with DM 2 approximately 1994. He has had hemithyroidectomy in the past with residual hypothyroidism. He has history of hyperlipidemia Hematology/oncology: He has anemia with a previous workup September 2014 showing iron 32, transferrin saturation 12%, ferritin 34, B12 175, folate 12.08. He denies internal malignancies. Psychiatric: He denies anxiety depression or other mental health issues Musk skeletal: He has arthritis but no known gout or osteoporosis. - Constitutional Vitals: Temp Pulse Resp BP Pulse Ox 98.5 F 60 18 136/64 96 02/28/17 15:08 02/28/17 15:08 02/28/17 15:08 02/28/17 15:08 02/28/17 15:08 Exam: Gen.: He is a well developed well-nourished male who appears in no acute distress at present time HEENT: Head is atraumatic and normocephalic. Eyes: EOMI. There is no scleral icterus. Mouth: Mucosa is moist. Neck: Supple and nontender. There is no thyromegaly or adenopathy noted. Heart: Regular without murmurs gallops or ectopics Lungs: No wheezes or crackles are heard. Abdomen: Soft and nontender. No masses or guarding are noted. Extremities: There is no cyanosis edema or clubbing noted. Dorsalis pedis and posterior tibial pulses are trace palpable bilaterally. His feet are warm to touch. He has minimal DJD changes of his hands. Neurologic: Mental status: He is talkative and seems to be a reliable historian. Cranial nerves: Smile is symmetric. Forehead wrinkles bilaterally. Tongue protrudes midline. EOMI. Motor: He has slight weakness in his left hand. The right hand moves normally. Cerebellar: Finger to nose is intact with the right hand and shows dysmetria with tremor in the left hand. Skin: Warm and dry Internal Med - H&P Results - Labs CBC & Chem 7: 02/28/17 10:10 02/28/17 10:10 Labs: Urine 02/28/17 Range/Units 14:25 Urine Color Dark Yellow (Yellow) Urine Clarity Clear (Clear) Urine pH 5.5 (5.0-8.0) pH Units Ur Specific [place] 1.015 (1.010-1.025) Urine Protein 30 H (Neg-Trace) mg/dL Urine Glucose (UA) Normal (Normal) mg/dL
[2017-03-01] MEDS ORDERED: amLODIPine 5 MG TABLET PO ONE (00:56)
[2017-03-01 06:15] LABS: Basophils # 0.1 K/mcL (0.0-0.2); Basophils % 0.9 %; Eosinophils # 0.2 K/mcL (0.0-0.6); Hematocrit 35.3 % (37.5-50.1); Hemoglobin 11.7 g/dL (12.9-16.9); Immature Granulocytes % 0.3 % (0-4); Lymphocytes % 21.7 %; Mean Corpuscular HGB Conc 33.1 g/dL (31.6-35.5); Mean Corpuscular Hemoglobin 28.7 pg (28.0-33.3); Mean Corpuscular Volume 86.7 fL (83.0-100.0); Mean Platelet Volume 9.6 fL (9.4-12.4); Monocytes # 0.7 K/mcL (0.0-1.3); Monocytes % 7.1 %; Neutrophils # 6.4 K/mcL (1.6-8.9); Platelet Count 197 K/mcL (140-400); Red Blood Count 4.07 M/mcL (4.19-5.50); Red Cell Distribution Width 14.2 % (11.5-14.5)
[2017-03-01 06:28] LABS: Magnesium 1.9 mg/dL (1.6-2.6)
[2017-03-01 06:33] LABS: Calcium 8.1 mg/dL (8.6-10.8); Potassium 3.9 mEq/L (3.5-4.5)
[2017-03-01 06:56] LABS: Thyroid Stimulating Hormone 1.286 mcIU/mL (0.350-4.840)
[2017-03-01 10:36] VITALS: BP 192/73
--- NOTE | 2017-03-01 10:57 | Discharge Summary ---
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 Qualified Code(s): E03.8 - Other specified hypothyroidism; E06.3 - Autoimmune thyroiditis (3) Hypotension Priority: Secondary Status: Acute Qualifiers: Hypotension type: hypotension due to drug Qualified Code(s): I95.2 - Hypotension due to drugs - Discharge Medications Prescriptions: Amlodipine Besylate 10 mg PO HS #30 tablet Labetalol HCl 300 mg PO BID #60 tablet Home Medications: Levothyroxine [Synthroid] [place] [address]/20/16 [History] Doxazosin [Cardura] 8 mg PO HS 06/21/16 [History] Finasteride [Proscar] 5 mg PO DAILY 06/21/16 [History] Glimepiride [Amaryl] 4 mg PO DAILY 06/21/16 [History] Amlodipine Besylate 10 mg PO HS #30 tablet 03/01/17 [Rx] Labetalol HCl 300 mg PO BID #60 tablet 03/01/17 [Rx] Allergies/Adverse Reactions: Allergies No Known Allergies Allergy (Unverified 07/23/15 10:51) Date of admission: 02/28/17 13:14 Primary care physician: Nilay Alexander MD - Patient Status Disposition: Home Health Service Condition: Good Functional capacity at discharge: independent ambulation Overall status at discharge: patient is progressing back to baseline - Discharge Instructions Follow Up With: Nilay Alexander MD [Primary Care Provider] - 1 week - Diet and Activity Activity: resume usual activities as tolerated Diet: advance to your usual diet Hospital course: Mr. Morris is a 71 year old male who came to emergency room stating he had developed low blood pressure after taking his morning blood pressure medications. He felt weak and lethargic. His family reportedly observed him to be "sleepy". He was brought to emergency room and evaluated and admitted to [facility] for ongoing care needs. Initial orders were written by the emergency room physician. I saw him on February 28 and performed a history and physical. His home blood pressure medications were held. Pressure evelina significantly up to 219/85 the regional forester hours of March 01. I felt he should take amlodipine at bedtime instead of the morning to help better control his elevated morning blood pressure readings at home. He reported that he was not taking Tenoretic. He stated he was taking Cardura, hydralazine twice a day, labetalol, Aldactone, and clonidine twice a day at home. I could not verify these doses prior to discharge. He will continue his home regimen except now take the amlodipine at bedtime. Home health services will continue to be provided. His PCP can further adjust his blood pressure medications. Follow-up lab work on March 01 showed resolution of the neutrophilic leukocytosis. TSH returned normal at 1.286. He will follow with his PCP within one week. - Time Spent with Patient Total time spent providing and/or coordinating discharge services: - Constitutional Vitals: Temp Pulse Resp BP Pulse Ox 98.8 F 63 16 192/73 95 03/01/17 10:35 03/01/17 10:35 03/01/17 10:35 03/01/17 10:35 03/01/17 10:35
--- NOTE | 2017-03-01 11:05 | Physician Discharge Referral ---
Home Health/Hosp Referral Info Transfer to: Home Health Attending Provider: Gerard Provider in Charge Post Discharge: PCP (Nilay Alexander M.D.) - Diagnosis (1) Neutrophilic leukocytosis Priority: Primary Status: Resolved (2) Hypothyroid Priority: Secondary Status: Chronic (3) Hypotension Priority: Secondary Status: Acute - Respiratory Orders Smoking Cessation: Smoking cessation has been advised. For more information, call the [place] Tobacco Quit Line at 2-424-GHHB-NOW. - Diet/Nutrition Diet/Nutrition Orders: No Added Salt (LONA) - Activity Activity Orders: Ambulate - Services Needed Following services are medically necessary services: Nursing, Home Health Aide, Physical Therapy, Occupational Therapy - Transfer Medications Prescriptions: Amlodipine Besylate 10 mg PO HS #30 tablet Labetalol HCl 300 mg PO BID #60 tablet Home Medications: Levothyroxine [Synthroid] [place] [address]/20/16 [History] Doxazosin [Cardura] 8 mg PO HS 06/21/16 [History] Finasteride [Proscar] 5 mg PO DAILY 06/21/16 [History] Glimepiride [Amaryl] 4 mg PO DAILY 06/21/16 [History] Amlodipine Besylate 10 mg PO HS #30 tablet 03/01/17 [Rx] Labetalol HCl 300 mg PO BID #60 tablet 03/01/17 [Rx] Allergies/Adverse Reactions: Allergies No Known Allergies Allergy (Unverified 07/23/15 10:51) Certification: Further, I certify that my clinical findings support that this patient is homebound (i.e. absences from home require considerable and taxing effort and are for medical reasons or [employer] services or infrequently or short duration when for other reasons) because: Homebound Reason: Patient requires assistance of a person or device to safely leave home, Leaving home requires considerable and taxing effort due to condition (Weakness, possible COPD) Attestation: My signature below is to certify that this patient is under my care and that I, or nurse practitioner, or a physician's electrician assistant working with me, has a face-to -face encounter with this patient.
--- NOTE | 2017-03-01 17:46 | Electrocardiograph Report ---
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
== END 2017-03-01 12:19 | disposition home health service (06) ==
LOC: INPPIK 09:41 → EMEROOPIK 09:41 → INPPIK 13:28
PROVIDERS: ADMIT Internal Medicine; ATTEND Internal Medicine

== ENCOUNTER 2022-02-16 09:45 | Observation (INO) ==
[2022-02-16] MEDS ORDERED: methylPREDNISolone 125 MG/2 ML VIAL IVP ONE (09:48)
[2022-02-16] MEDS ORDERED: Ipratropium/Albuterol Neb 3 ML IH ONE (09:48)
[2022-02-16 10:27] LABS: Basophils # 0.1 K/mcL (0.0-0.2); Basophils % 0.7 %; Eosinophils # 0.1 K/mcL (0.0-0.6); Eosinophils % 0.4 %; Hematocrit 39.5 % (37.5-50.1); Hemoglobin 12.5 g/dL (12.9-16.9); Immature Granulocytes % 0.7 % (0-4); Lymphocytes # 0.9 K/mcL (0.6-4.6); Lymphocytes % 5.9 %; Mean Corpuscular HGB Conc 31.6 g/dL (31.6-35.5); Mean Corpuscular Hemoglobin 24.5 pg (28.0-33.3); Mean Corpuscular Volume 77.5 fL (83.0-100.0); Mean Platelet Volume 9.2 fL (9.4-12.4); Monocytes # 0.8 K/mcL (0.0-1.3); Monocytes % 5.5 %; Neutrophils # 13.1 K/mcL (1.6-8.9); Platelet Count 389 K/mcL (140-400); Red Cell Distribution Width 15.2 % (11.5-14.5); Segmented Neutrophils % 86.8 %; White Blood Count 15.1 K/mcL (4.3-11.1)
[2022-02-16 10:39] LABS: Calcium 8.2 mg/dL (8.6-10.3); Potassium 2.9 mEq/L (3.5-5.1)
[2022-02-16 10:43] LABS: Troponin I 0.04 ng/mL (< 0.04)
[2022-02-16] MEDS ORDERED: 0.9 % Sodium Chloride 500 ML IVC ONE (10:43)
[2022-02-16] MEDS ORDERED: cefTRIAXone 2,000 MG in 0.9 % Sodium Chloride Mini Bag 100 ML IVPB ONE (10:43)
[2022-02-16] MEDS ORDERED: Azithromycin 500 MG in 0.9 % Sodium Chloride 250 ML IVPB ONE (10:43)
[2022-02-16] MEDS ORDERED: 0.9 % Sodium Chloride 1,000 ML IVC SCH ×2 (10:45→11:30)
[2022-02-16] MEDS ORDERED: Acetaminophen 325 MG TABLET PO PRN (11:20)
[2022-02-16] MEDS ORDERED: Ondansetron 4 MG/2 ML VIAL IVP PRN (11:20)
[2022-02-16] MEDS ORDERED: Naloxone 0.4 MG/ML INJ IVP PRN (11:20)
[2022-02-16] MEDS ORDERED: Nicotine 21 MG PATCH.TD24 TD SCH (11:45)
[2022-02-16] MEDS: Ipratropium/Albuterol Neb 3 ML IH SCH ×2 (12:12→14:59)
[2022-02-16 13:17] VITALS: BP 186/87; PULSE 84; TEMP 98.3
[2022-02-16 15:02] VITALS: RESP 18; O2SAT 95
[2022-02-16] MEDS ORDERED: D5% in Water 1,000 ML IVC PRN (16:22)
[2022-02-16] MEDS ORDERED: *HR* Dextrose 50 % in Water (Syg) 50 ML SYRINGE IVP PRN (16:22)
[2022-02-16] MEDS ORDERED: Dextrose Gel 15 GM/37.5 ML TUBE PO PRN ×2 (16:22)
[2022-02-16] MEDS ORDERED: Insulin LISPRO 300 UNITS/3 ML VIAL SUBQ SCH ×2 (16:30→21:00)
[2022-02-16 17:19] LABS: Adenovirus Not Detected (Not Detect); Bordetella Pertussis Not Detected (Not Detect); Chlamydophila pneumoniae Not Detected (Not Detect); Coronavirus 229E Not Detected (Not Detect); Coronavirus HKU1 Not Detected (Not Detect); Coronavirus NL63 Not Detected (Not Detect); Coronavirus OC43 Not Detected (Not Detect); Human Metapneumovirus Not Detected (Not Detect); Human Rhinovirus/Enterovirus Not Detected (Not Detect); Influenza A Subtype 2009 H1 Not Detected (Not Detect); Influenza B Not Detected (Not Detect); Mycoplasma pneumoniae Not Detected (Not Detect); Parainfluenza Virus 1 Not Detected (Not Detect); Parainfluenza Virus 2 Not Detected (Not Detect); Parainfluenza Virus 3 Not Detected (Not Detect); Parainfluenza Virus 4 Not Detected (Not Detect); Respiratory Syncytial Virus Not Detected (Not Detect); SARS-CoV-2 Not Detected (Not Detect)
[2022-02-16] MEDS ORDERED: *HR* Heparin 5,000 UNIT/ML VIAL SQ SCH (18:00)
[2022-02-16 21:13] LABS: Estimated Average Glucose 137 mg/dl; Hemoglobin A1C 6.4 %
[2022-02-17] MEDS ORDERED: cefTRIAXone 2,000 MG in 0.9 % Sodium Chloride Mini Bag 100 ML IVPB SCH (09:00)
[2022-02-17] MEDS ORDERED: Azithromycin 500 MG in 0.9 % Sodium Chloride 250 ML IVPB SCH (09:00)
== END 2022-02-16 18:59 | disposition short-term general hospital (02) ==
LOC: EMEROOPIK 09:45 → INPPIK 09:45
PROVIDERS: ADMIT Family Medicine; ATTEND Family Medicine

== ENCOUNTER 2022-02-20 11:24 | Inpatient (IN) ==
[2022-02-20] MEDS ORDERED: D5% in Water 1,000 ML IVC PRN (21:00)
[2022-02-20] MEDS ORDERED: *HR* Dextrose 50 % in Water (Syg) 50 ML SYRINGE IVP PRN (21:00)
[2022-02-20] MEDS ORDERED: Dextrose Gel 15 GM/37.5 ML TUBE PO PRN ×2 (21:00)
[2022-02-20] MEDS: levoFLOXacin 750 MG TABLET PO SCH (22:04)
[2022-02-20] MEDS: Primidone 50 MG TABLET PO SCH (22:05)
[2022-02-20] MEDS: Insulin LISPRO 300 UNITS/3 ML VIAL SUBQ SCH (22:10)
[2022-02-21] MEDS: *HR* Enoxaparin 40 MG/0.4 ML SYRINGE SQ SCH (06:12)
[2022-02-21 07:36] LABS: Basophils # 0.1 K/mcL (0.0-0.2); Basophils % 0.8 %; Eosinophils # 0.2 K/mcL (0.0-0.6); Eosinophils % 2.5 %; Hematocrit 35.1 % (37.5-50.1); Hemoglobin 10.8 g/dL (12.9-16.9); Immature Granulocytes % 0.7 % (0-4); Lymphocytes % 13.3 %; Mean Corpuscular HGB Conc 30.8 g/dL (31.6-35.5); Mean Corpuscular Hemoglobin 24.3 pg (28.0-33.3); Mean Corpuscular Volume 79.1 fL (83.0-100.0); Mean Platelet Volume 8.5 fL (9.4-12.4); Monocytes # 0.5 K/mcL (0.0-1.3); Monocytes % 7.2 %; Neutrophils # 5.7 K/mcL (1.6-8.9); Platelet Count 233 K/mcL (140-400); Red Blood Count 4.44 M/mcL (4.19-5.50); Red Cell Distribution Width 15.4 % (11.5-14.5); Segmented Neutrophils % 75.5 %; White Blood Count 7.5 K/mcL (4.3-11.1)
[2022-02-21] MEDS: Insulin LISPRO 300 UNITS/3 ML VIAL SUBQ SCH ×4 (07:41→20:14)
[2022-02-21 07:54] LABS: BUN/Creatinine Ratio 14 (6-26); Blood Urea Nitrogen 19 mg/dL (8-23); Carbon Dioxide 28 mEq/L (23-29); Chloride 100 mEq/L (98-107); Glucose 126 mg/dL (70-105); Osmolality,Calculated 284 (280-300); Potassium 3.6 mEq/L (3.5-5.1); Sodium 135 mEq/L (136-145); eGFR For African Americans > 60 (> 60); eGFR For Non-African Americans 52 (> 60)
[2022-02-21] MEDS: cloNIDine HCL 0.1 MG TABLET PO SCH ×2 (08:50→20:10)
[2022-02-21] MEDS: Finasteride 5 MG TABLET PO SCH (08:50)
[2022-02-21] MEDS: Magnesium Oxide 400 MG TABLET PO SCH (08:50)
[2022-02-21] MEDS: *HR* Glimepiride 4 MG TABLET PO SCH (08:50)
[2022-02-21] MEDS: amLODIPine 5 MG TABLET PO SCH (08:50)
[2022-02-21] MEDS: lisinopriL 10 MG TABLET PO SCH (08:50)
[2022-02-21] MEDS: Aspirin Enteric Coated 81 MG Tablet PO SCH (08:51)
[2022-02-21] MEDS: Primidone 50 MG TABLET PO SCH (20:10)
[2022-02-22] MEDS: *HR* Enoxaparin 40 MG/0.4 ML SYRINGE SQ SCH (05:53)
[2022-02-22] MEDS: Insulin LISPRO 300 UNITS/3 ML VIAL SUBQ SCH ×4 (07:27→20:00)
[2022-02-22] MEDS: amLODIPine 5 MG TABLET PO SCH (08:19)
[2022-02-22] MEDS: *HR* Glimepiride 4 MG TABLET PO SCH (08:20)
[2022-02-22] MEDS: cloNIDine HCL 0.1 MG TABLET PO SCH ×2 (08:20→19:29)
[2022-02-22] MEDS: lisinopriL 10 MG TABLET PO SCH (08:20)
[2022-02-22] MEDS: Magnesium Oxide 400 MG TABLET PO SCH (08:20)
[2022-02-22] MEDS: Finasteride 5 MG TABLET PO SCH (08:20)
[2022-02-22] MEDS: Aspirin Enteric Coated 81 MG Tablet PO SCH (08:20)
[2022-02-22] MEDS: Primidone 50 MG TABLET PO SCH (19:29)
[2022-02-22] MEDS: levoFLOXacin 750 MG TABLET PO SCH (19:29)
[2022-02-23] MEDS: *HR* Enoxaparin 40 MG/0.4 ML SYRINGE SQ SCH (05:31)
[2022-02-23] MEDS: Insulin LISPRO 300 UNITS/3 ML VIAL SUBQ SCH ×4 (08:03→21:54)
[2022-02-23] MEDS: lisinopriL 10 MG TABLET PO SCH (09:17)
[2022-02-23] MEDS: cloNIDine HCL 0.1 MG TABLET PO SCH ×2 (09:17→22:03)
[2022-02-23] MEDS: Finasteride 5 MG TABLET PO SCH (09:17)
[2022-02-23] MEDS: *HR* Glimepiride 4 MG TABLET PO SCH (09:17)
[2022-02-23] MEDS: amLODIPine 5 MG TABLET PO SCH (09:17)
[2022-02-23] MEDS: Magnesium Oxide 400 MG TABLET PO SCH (09:17)
[2022-02-23] MEDS: Aspirin Enteric Coated 81 MG Tablet PO SCH (09:17)
[2022-02-23] MEDS: Acetaminophen 325 MG TABLET PO PRN (12:59)
[2022-02-23] MEDS: hydrALAZINE 25 MG TABLET PO PRN (14:47)
[2022-02-23] MEDS: Primidone 50 MG TABLET PO SCH (22:03)
[2022-02-23] MEDS: Budesonide/Formoterol 160/4.5 1 PUFF INH IH SCH (22:38)
[2022-02-24] MEDS: *HR* Enoxaparin 40 MG/0.4 ML SYRINGE SQ SCH (05:58)
[2022-02-24] MEDS: Insulin LISPRO 300 UNITS/3 ML VIAL SUBQ SCH ×4 (07:51→21:38)
[2022-02-24] MEDS: Magnesium Oxide 400 MG TABLET PO SCH (08:15)
[2022-02-24] MEDS: Aspirin Enteric Coated 81 MG Tablet PO SCH (08:15)
[2022-02-24] MEDS: cloNIDine HCL 0.1 MG TABLET PO SCH ×2 (08:15→21:32)
[2022-02-24] MEDS: lisinopriL 10 MG TABLET PO SCH (08:15)
[2022-02-24] MEDS: amLODIPine 5 MG TABLET PO SCH (08:15)
[2022-02-24] MEDS: Finasteride 5 MG TABLET PO SCH (08:15)
[2022-02-24] MEDS: *HR* Glimepiride 4 MG TABLET PO SCH (08:15)
[2022-02-24] MEDS: Budesonide/Formoterol 160/4.5 1 PUFF INH IH SCH ×2 (09:39→21:17)
[2022-02-24] MEDS: Primidone 50 MG TABLET PO SCH (21:34)
[2022-02-24] MEDS: levoFLOXacin 750 MG TABLET PO SCH (21:34)
[2022-02-25] MEDS: *HR* Enoxaparin 40 MG/0.4 ML SYRINGE SQ SCH (06:08)
[2022-02-25] MEDS: Budesonide/Formoterol 160/4.5 1 PUFF INH IH SCH ×2 (07:58→21:48)
[2022-02-25] MEDS: Insulin LISPRO 300 UNITS/3 ML VIAL SUBQ SCH ×4 (08:13→21:00)
[2022-02-25] MEDS: lisinopriL 10 MG TABLET PO SCH (08:20)
[2022-02-25] MEDS: cloNIDine HCL 0.1 MG TABLET PO SCH ×2 (08:20→21:32)
[2022-02-25] MEDS: Finasteride 5 MG TABLET PO SCH (08:20)
[2022-02-25] MEDS: Aspirin Enteric Coated 81 MG Tablet PO SCH (08:20)
[2022-02-25] MEDS: *HR* Glimepiride 4 MG TABLET PO SCH (08:21)
[2022-02-25] MEDS: amLODIPine 5 MG TABLET PO SCH (08:21)
[2022-02-25] MEDS: Magnesium Oxide 400 MG TABLET PO SCH (08:21)
[2022-02-25] MEDS: Primidone 50 MG TABLET PO SCH (21:33)
[2022-02-25] MEDS: hydrALAZINE 25 MG TABLET PO PRN (21:33)
[2022-02-26] MEDS ORDERED: *HR* Labetalol 20 MG/4 ML SYRINGE IVP ONE (04:10)
[2022-02-26] MEDS: hydrOXYzine pamoate 25 MG CAPSULE PO PRN (05:34)
[2022-02-26] MEDS: *HR* Enoxaparin 40 MG/0.4 ML SYRINGE SQ SCH (05:34)
[2022-02-26] MEDS: Aspirin Enteric Coated 81 MG Tablet PO SCH (08:01)
[2022-02-26] MEDS: Acetaminophen 325 MG TABLET PO PRN (08:01)
[2022-02-26] MEDS: Insulin LISPRO 300 UNITS/3 ML VIAL SUBQ SCH ×4 (08:01→20:38)
[2022-02-26] MEDS: amLODIPine 5 MG TABLET PO SCH (08:01)
[2022-02-26] MEDS: Magnesium Oxide 400 MG TABLET PO SCH (08:01)
[2022-02-26] MEDS: cloNIDine HCL 0.1 MG TABLET PO SCH ×2 (08:02→21:38)
[2022-02-26] MEDS: lisinopriL 10 MG TABLET PO SCH (08:02)
[2022-02-26] MEDS: Finasteride 5 MG TABLET PO SCH (08:02)
[2022-02-26] MEDS: hydrALAZINE 25 MG TABLET PO PRN (08:02)
[2022-02-26] MEDS: *HR* Glimepiride 4 MG TABLET PO SCH (08:02)
[2022-02-26] MEDS: Budesonide/Formoterol 160/4.5 1 PUFF INH IH SCH ×2 (08:13→20:28)
[2022-02-26] MEDS: Primidone 50 MG TABLET PO SCH (21:38)
[2022-02-27] MEDS: Budesonide/Formoterol 160/4.5 1 PUFF INH IH SCH ×2 (07:42→21:59)
[2022-02-27] MEDS: *HR* Enoxaparin 40 MG/0.4 ML SYRINGE SQ SCH (07:49)
[2022-02-27] MEDS: Insulin LISPRO 300 UNITS/3 ML VIAL SUBQ SCH ×4 (07:57→20:16)
[2022-02-27] MEDS: *HR* Glimepiride 4 MG TABLET PO SCH (10:04)
[2022-02-27] MEDS: cloNIDine HCL 0.1 MG TABLET PO SCH ×2 (10:04→20:15)
[2022-02-27] MEDS: amLODIPine 5 MG TABLET PO SCH (10:04)
[2022-02-27] MEDS: Finasteride 5 MG TABLET PO SCH (10:04)
[2022-02-27] MEDS: Magnesium Oxide 400 MG TABLET PO SCH (10:04)
[2022-02-27] MEDS: lisinopriL 10 MG TABLET PO SCH (10:04)
[2022-02-27] MEDS: Aspirin Enteric Coated 81 MG Tablet PO SCH (10:04)
[2022-02-27] MEDS: Albuterol 2.5 MG/3 ML NEBULIZER IH PRN ×2 (16:10→22:01)
[2022-02-27] MEDS: Primidone 50 MG TABLET PO SCH (20:15)
[2022-02-28] MEDS: *HR* Enoxaparin 40 MG/0.4 ML SYRINGE SQ SCH (05:52)
[2022-02-28] MEDS: Budesonide/Formoterol 160/4.5 1 PUFF INH IH SCH ×2 (09:33→22:36)
[2022-02-28] MEDS: Albuterol 2.5 MG/3 ML NEBULIZER IH PRN ×2 (09:35→14:55)
[2022-02-28] MEDS: Insulin LISPRO 300 UNITS/3 ML VIAL SUBQ SCH ×4 (09:48→23:55)
[2022-02-28] MEDS: lisinopriL 20 MG TABLET PO SCH (09:48)
[2022-02-28] MEDS: cloNIDine HCL 0.1 MG TABLET PO SCH ×2 (09:49→20:19)
[2022-02-28] MEDS: amLODIPine 5 MG TABLET PO SCH (09:49)
[2022-02-28] MEDS: Aspirin Enteric Coated 81 MG Tablet PO SCH (09:49)
[2022-02-28] MEDS: *HR* Glimepiride 4 MG TABLET PO SCH (09:49)
[2022-02-28] MEDS: hydrALAZINE 25 MG TABLET PO PRN (09:49)
[2022-02-28] MEDS: Finasteride 5 MG TABLET PO SCH (09:49)
[2022-02-28] MEDS: Magnesium Oxide 400 MG TABLET PO SCH (09:49)
[2022-02-28] MEDS: Primidone 50 MG TABLET PO SCH (20:19)
[2022-02-28] MEDS: hydrOXYzine pamoate 25 MG CAPSULE PO PRN (20:20)
[2022-03-01] MEDS: *HR* Enoxaparin 40 MG/0.4 ML SYRINGE SQ SCH (06:31)
[2022-03-01] MEDS: Albuterol 2.5 MG/3 ML NEBULIZER IH PRN ×2 (07:39→15:50)
[2022-03-01] MEDS: Budesonide/Formoterol 160/4.5 1 PUFF INH IH SCH ×2 (07:39→23:31)
[2022-03-01 08:46] LABS: Hematocrit 34.2 % (37.5-50.1); Hemoglobin 10.4 g/dL (12.9-16.9); Mean Corpuscular HGB Conc 30.4 g/dL (31.6-35.5); Mean Corpuscular Hemoglobin 24.5 pg (28.0-33.3); Mean Corpuscular Volume 80.5 fL (83.0-100.0); Mean Platelet Volume 9.1 fL (9.4-12.4); Platelet Count 248 K/mcL (140-400); Red Blood Count 4.25 M/mcL (4.19-5.50); Red Cell Distribution Width 15.9 % (11.5-14.5); White Blood Count 10.1 K/mcL (4.3-11.1)
[2022-03-01 09:04] LABS: BUN/Creatinine Ratio 21 (6-26); Blood Urea Nitrogen 27 mg/dL (8-23); Calcium 8.2 mg/dL (8.6-10.3); Carbon Dioxide 29 mEq/L (23-29); Chloride 101 mEq/L (98-107); Glucose 146 mg/dL (70-105); Osmolality,Calculated 290 (280-300); Sodium 136 mEq/L (136-145); eGFR For African Americans > 60 (> 60); eGFR For Non-African Americans 54 (> 60)
[2022-03-01] MEDS: *HR* Glimepiride 4 MG TABLET PO SCH (10:22)
[2022-03-01] MEDS: lisinopriL 20 MG TABLET PO SCH (10:22)
[2022-03-01] MEDS: amLODIPine 5 MG TABLET PO SCH (10:22)
[2022-03-01] MEDS: cloNIDine HCL 0.1 MG TABLET PO SCH ×2 (10:22→21:50)
[2022-03-01] MEDS: Aspirin Enteric Coated 81 MG Tablet PO SCH (10:22)
[2022-03-01] MEDS: Finasteride 5 MG TABLET PO SCH (10:22)
[2022-03-01] MEDS: Magnesium Oxide 400 MG TABLET PO SCH (13:41)
[2022-03-01] MEDS: Insulin LISPRO 300 UNITS/3 ML VIAL SUBQ SCH ×4 (13:42→21:45)
[2022-03-01] MEDS: hydrOXYzine pamoate 25 MG CAPSULE PO PRN (21:50)
[2022-03-01] MEDS: Primidone 50 MG TABLET PO SCH (21:50)
[2022-03-02] MEDS: *HR* Enoxaparin 40 MG/0.4 ML SYRINGE SQ SCH (06:23)
[2022-03-02] MEDS: Albuterol 2.5 MG/3 ML NEBULIZER IH PRN ×2 (08:11→15:25)
[2022-03-02] MEDS: Budesonide/Formoterol 160/4.5 1 PUFF INH IH SCH ×2 (08:11→22:16)
[2022-03-02] MEDS: amLODIPine 5 MG TABLET PO SCH (08:27)
[2022-03-02] MEDS: Aspirin Enteric Coated 81 MG Tablet PO SCH (08:27)
[2022-03-02] MEDS: lisinopriL 20 MG TABLET PO SCH (08:27)
[2022-03-02] MEDS: *HR* Glimepiride 4 MG TABLET PO SCH (08:27)
[2022-03-02] MEDS: Finasteride 5 MG TABLET PO SCH (08:27)
[2022-03-02] MEDS: Magnesium Oxide 400 MG TABLET PO SCH (08:28)
[2022-03-02] MEDS: cloNIDine HCL 0.1 MG TABLET PO SCH ×2 (08:28→21:27)
[2022-03-02] MEDS: Insulin LISPRO 300 UNITS/3 ML VIAL SUBQ SCH ×4 (08:29→21:28)
[2022-03-02] MEDS: Primidone 50 MG TABLET PO SCH (21:27)
[2022-03-03] MEDS: *HR* Enoxaparin 40 MG/0.4 ML SYRINGE SQ SCH (05:27)
[2022-03-03] MEDS: Budesonide/Formoterol 160/4.5 1 PUFF INH IH SCH ×2 (08:28→21:24)
[2022-03-03] MEDS: Albuterol 2.5 MG/3 ML NEBULIZER IH PRN ×2 (08:28→21:27)
[2022-03-03] MEDS: Aspirin Enteric Coated 81 MG Tablet PO SCH (08:36)
[2022-03-03] MEDS: cloNIDine HCL 0.1 MG TABLET PO SCH ×2 (08:36→21:22)
[2022-03-03] MEDS: *HR* Glimepiride 4 MG TABLET PO SCH (08:36)
[2022-03-03] MEDS: Finasteride 5 MG TABLET PO SCH (08:36)
[2022-03-03] MEDS: lisinopriL 20 MG TABLET PO SCH (08:36)
[2022-03-03] MEDS: amLODIPine 5 MG TABLET PO SCH (08:36)
[2022-03-03] MEDS: Magnesium Oxide 400 MG TABLET PO SCH (08:40)
[2022-03-03] MEDS: Insulin LISPRO 300 UNITS/3 ML VIAL SUBQ SCH ×4 (08:47→21:23)
[2022-03-03] MEDS: Primidone 50 MG TABLET PO SCH (21:23)
[2022-03-04] MEDS: *HR* Enoxaparin 40 MG/0.4 ML SYRINGE SQ SCH (05:28)
[2022-03-04] MEDS: Insulin LISPRO 300 UNITS/3 ML VIAL SUBQ SCH ×4 (07:42→20:11)
[2022-03-04] MEDS: Budesonide/Formoterol 160/4.5 1 PUFF INH IH SCH ×2 (08:36→21:38)
[2022-03-04] MEDS: Aspirin Enteric Coated 81 MG Tablet PO SCH (09:44)
[2022-03-04] MEDS: Finasteride 5 MG TABLET PO SCH (09:45)
[2022-03-04] MEDS: cloNIDine HCL 0.1 MG TABLET PO SCH ×2 (09:45→20:10)
[2022-03-04] MEDS: *HR* Glimepiride 4 MG TABLET PO SCH (09:45)
[2022-03-04] MEDS: amLODIPine 5 MG TABLET PO SCH (09:45)
[2022-03-04] MEDS: lisinopriL 20 MG TABLET PO SCH (09:45)
[2022-03-04] MEDS: Magnesium Oxide 400 MG TABLET PO SCH (09:45)
[2022-03-04] MEDS: Primidone 50 MG TABLET PO SCH (20:10)
[2022-03-04] MEDS: Albuterol 2.5 MG/3 ML NEBULIZER IH PRN (21:38)
[2022-03-04] MEDS: hydrOXYzine pamoate 25 MG CAPSULE PO PRN (22:59)
[2022-03-04] MEDS: Acetaminophen 325 MG TABLET PO PRN (22:59)
[2022-03-05] MEDS: *HR* Enoxaparin 40 MG/0.4 ML SYRINGE SQ SCH (06:01)
[2022-03-05] MEDS: cloNIDine HCL 0.1 MG TABLET PO SCH ×2 (07:39→22:12)
[2022-03-05] MEDS: amLODIPine 5 MG TABLET PO SCH (07:39)
[2022-03-05] MEDS: Magnesium Oxide 400 MG TABLET PO SCH (07:39)
[2022-03-05] MEDS: *HR* Glimepiride 4 MG TABLET PO SCH (07:39)
[2022-03-05] MEDS: Aspirin Enteric Coated 81 MG Tablet PO SCH (07:39)
[2022-03-05] MEDS: lisinopriL 20 MG TABLET PO SCH (07:40)
[2022-03-05] MEDS: Finasteride 5 MG TABLET PO SCH (07:40)
[2022-03-05] MEDS: Insulin LISPRO 300 UNITS/3 ML VIAL SUBQ SCH ×4 (07:40→22:12)
[2022-03-05] MEDS: Budesonide/Formoterol 160/4.5 1 PUFF INH IH SCH ×2 (08:10→21:17)
[2022-03-05] MEDS ORDERED: COVID-19 VAC,AD26(JANSSEN)/PF 0.5 ML VIAL IM ONE (16:00)
[2022-03-05] MEDS: Primidone 50 MG TABLET PO SCH (22:12)
[2022-03-06] MEDS: hydrOXYzine pamoate 25 MG CAPSULE PO PRN (00:02)
[2022-03-06] MEDS: *HR* Enoxaparin 40 MG/0.4 ML SYRINGE SQ SCH (06:48)
[2022-03-06 07:30] VITALS: BP 186/73; PULSE 61; RESP 20; TEMP 98.1; O2SAT 95
[2022-03-06] MEDS: Budesonide/Formoterol 160/4.5 1 PUFF INH IH SCH (08:18)
[2022-03-06] MEDS: Aspirin Enteric Coated 81 MG Tablet PO SCH (08:39)
[2022-03-06] MEDS: cloNIDine HCL 0.1 MG TABLET PO SCH (08:39)
[2022-03-06] MEDS: Magnesium Oxide 400 MG TABLET PO SCH (08:40)
[2022-03-06] MEDS: amLODIPine 5 MG TABLET PO SCH (08:40)
[2022-03-06] MEDS: Finasteride 5 MG TABLET PO SCH (08:40)
[2022-03-06] MEDS: Insulin LISPRO 300 UNITS/3 ML VIAL SUBQ SCH (08:40)
[2022-03-06] MEDS: *HR* Glimepiride 4 MG TABLET PO SCH (08:40)
[2022-03-06] MEDS: lisinopriL 20 MG TABLET PO SCH (08:40)
== END 2022-03-06 11:00 | DRG 180 ==
LOC: INPPIK 18:56
PROVIDERS: ADMIT Internal Medicine; ATTEND Internal Medicine